=== PATIENT | female | born 1980 | race African-American/Black ===

== ENCOUNTER 2018-05-14 09:54 | Inpatient (IN) | payer OTHER ==
[2018-05-14] MEDS: PENICILLIN G POTASSIUM IV 5 MU in D5W MINI-BAG PLUS 100 ML IV (11:04)
[2018-05-14 11:09] LABS: HEMATOCRIT 41.5 % (36.0-47.0); MEAN CORPUSCULAR HEMOGLOBIN 29.5 pg (27.0-33.0); MEAN CORPUSCULAR HGB CONC 33.7 g/dl (32.0-36.5); MEAN CORPUSCULAR VOLUME 87.4 fl (80.0-96.0); PLATELET COUNT, AUTOMATED 183 10^3/uL (150-450); RED BLOOD COUNT 4.75 10^6/uL (4.00-5.40); RED CELL DISTRIBUTION WIDTH 13.4 % (11.5-14.5); WHITE BLOOD COUNT 7.9 10^3/uL (4.0-10.0)
[2018-05-14] MEDS: LR 1,000 ML IV ×3 (11:12→17:39)
[2018-05-14 11:26] LABS: CREATININE,RANDOM URINE 55.1 MG/DL
[2018-05-14 11:26] LABS: TOTAL PROTEIN,RANDOM URINE 13.6 MG/DL (0.0-12.0)
[2018-05-14] MEDS: ONDANSETRON 4MG/2ML VIAL (J2405) IV (11:34)
[2018-05-14 11:41] LABS: ALBUMIN 3.1 GM/DL (3.2-5.2); ALBUMIN/GLOBULIN RATIO 0.69 (1.00-1.93); ALKALINE PHOSPHATASE 171 U/L (45-117); ALT/SGPT 21 U/L (12-78); ANION GAP 9 MEQ/L (8-16); AST/SGOT 24 U/L (7-37); BILIRUBIN,TOTAL 0.5 MG/DL (0.2-1.0); BLOOD UREA NITROGEN 6 MG/DL (7-18); CALCIUM LEVEL 9.3 MG/DL (8.5-10.1); CARBON DIOXIDE LEVEL 24 MEQ/L (21-32); CHLORIDE LEVEL 104 MEQ/L (98-107); CREATININE FOR GFR 0.56 MG/DL (0.55-1.30); GLOMERULAR FILTRATION RATE > 60.0 (>60); GLUCOSE, FASTING 81 MG/DL (70-100); LDH LACTATE DEHYDROGENASE 154 U/L (84-246); POTASSIUM SERUM 3.7 MEQ/L (3.5-5.1); SODIUM LEVEL 137 MEQ/L (136-145); TOTAL PROTEIN 7.6 GM/DL (6.4-8.2); URIC ACID 5.9 MG/DL (2.6-6.0)
[2018-05-14] MEDS ORDERED: REFRIGERATOR IV KEYS XX (12:30)
[2018-05-14] MEDS ORDERED: EPIDURAL COMMENT XX (12:30)
[2018-05-14] MEDS ORDERED: EPIDURAL/PCA KEYS XX (12:30)
[2018-05-14] MEDS: FENTANYL/ROPIVACAINE/NACL BAG 100 ML EPIDURAL ×2 (13:03→18:37)
[2018-05-14] MEDS ORDERED: NALOXONE INJ 0.4 MG/1 ML VIAL (J2310) IV (13:45)
[2018-05-14] MEDS ORDERED: ONDANSETRON 4MG/2ML VIAL (J2405) IV (13:45)
[2018-05-14] MEDS ORDERED: diphenhydrAMINE INJ 50MG/ML VIAL (J1200) IV (13:45)
[2018-05-14] MEDS ORDERED: ePHEDrine SULFATE 25 MG/5 ML(5MG/ML) SYRINGE IV (13:45)
[2018-05-14] MEDS ORDERED: LACTATED RINGER'S 1000 ML IV (13:45)
[2018-05-14] MEDS: PENICILLIN G POTASSIUM IV 2.5 MU in APPROPRIATE DILUENT 1 EA IV ×2 (14:55→19:05)
[2018-05-14] MEDS ORDERED: OXYTOCIN DRIP 30 UNITS in APPROPRIATE DILUENT 1 EA IV (16:00)
[2018-05-14 23:53] LABS: CORD GAS ABE A -5.6; CORD GAS ABE V -5.5; CORD GAS HCO3 A 23.2 MEQ/L; CORD GAS HCO3 V 20.8 MEQ/L; CORD GAS O2 SAT A 25.6 %; CORD GAS O2 SAT V 43.3 %; CORD GAS PCO2 A 61.4 mmHg; CORD GAS PCO2 V 43.5 mmHg; CORD GAS PH A 7.196 UNITS; CORD GAS PH V 7.297 UNITS; CORD GAS PO2 V 22.3 mmHg; CORD GAS SBC A 18.4 MEQ/L; CORD GAS SBC V 18.9 MEQ/L; CORD GAS TCO2 A 25.1 MEQ/L; CORD GAS TCO2 V 22.1 MEQ/L
[2018-05-15] MEDS ORDERED: ANUSOL HC CREAM 30GM TOP (00:15)
[2018-05-15] MEDS ORDERED: DOCUSATE SODIUM 100 MG CAP PO (00:15)
[2018-05-15] MEDS ORDERED: ACETAMINOPHEN 500 MG TAB PO (00:15)
[2018-05-15] MEDS ORDERED: MOM 30ML SUSPENSION UDC PO (00:15)
[2018-05-15] MEDS ORDERED: DIBUCAINE 1% OINTMENT 30GM TOP (00:15)
[2018-05-15] MEDS ORDERED: METHYLERGONOVINE MALEATE 0.2 MG TAB PO (00:15)
[2018-05-15] MEDS: OXYTOCIN INJ 10 UNITS/ML VIAL (J2590) IV (02:30)
[2018-05-15] MEDS: IBUPROFEN 800 MG TAB PO (03:40)
[2018-05-15] MEDS: MEASLES,MUMPS,RUBELLA VACCINE INJ (MMR-II) (90707) SC (07:15)
[2018-05-15] MEDS: RHOGAM 300 MCG (1500 IU) INJ (J2790) IM (07:15)
[2018-05-15 07:58] LABS: HEMATOCRIT 38.2 % (36.0-47.0); HEMOGLOBIN 12.7 g/dl (12.0-15.5); MEAN CORPUSCULAR HEMOGLOBIN 29.8 pg (27.0-33.0); MEAN CORPUSCULAR HGB CONC 33.2 g/dl (32.0-36.5); MEAN CORPUSCULAR VOLUME 89.7 fl (80.0-96.0); PLATELET COUNT, AUTOMATED 181 10^3/uL (150-450); RED BLOOD COUNT 4.26 10^6/uL (4.00-5.40); RED CELL DISTRIBUTION WIDTH 13.6 % (11.5-14.5); WHITE BLOOD COUNT 20.5 10^3/uL (4.0-10.0)
[2018-05-15] MEDS: PRENATAL VITAMINS CHEWABLE TABLET PO (08:04)
[2018-05-16] MEDS: PRENATAL VITAMINS CHEWABLE TABLET PO (08:24)
== END 2018-05-16 13:55 | disposition home or self-care (01) | DRG 807 ==
LOC: M LDO 09:54 → M OBS 05-15 03:20 → M LDI 10:47
PROC: 10E0XZZ Delivery of Products of Conception, External Approach (ICD-10-PCS; principal; 2018-05-14)
PROC: 0HQ9XZZ Repair Perineum Skin, External Approach (ICD-10-PCS; 2018-05-14)
DX: O48.0 Post-term pregnancy (principal); Z37.0 Single live birth; O34.211 Maternal care for low transverse scar from previous cesarean delivery; Z3A.40 40 weeks gestation of pregnancy; O99.820 Streptococcus B carrier state complicating pregnancy; O77.0 Labor and delivery complicated by meconium in amniotic fluid; O70.0 First degree perineal laceration during delivery; O13.3 Gestational [pregnancy-induced] hypertension without significant proteinuria, third trimester; O76 Abnormality in fetal heart rate and rhythm complicating labor and delivery